=== PATIENT | female | born 1990 | race Caucasian/White ===

== ENCOUNTER 2019-04-27 10:38 | Emergency (ER) | payer MEDICAID ==
[~2019-04-27] VITALS: Ht 157.5 cm; Wt 55.8 kg
--- NOTE | 2019-04-27 10:38 | NUR ---
PATIENT TO BED 10 BY [facility] AT THIS TIME.
[2019-04-27 10:49] VITALS: BP 114/79
--- NOTE | 2019-04-27 11:01 | NUR ---
28 Y/O F BIBA FOR C/O LOWER ABDOMINAL PAIN 10/10 N/V X 1 DAY. PT STATES SHE WOKE UP VOMITTING THIS MORNING, NO DIARRHEA. PT STATES SHE AT [facility] AT 9:00 PM LAST NIGHT, NOTHING TO EAT OR DRINK THIS MORNING. PT VOMITTING AT BEDSIDE, GAVE EMESIS BAG. BOWEL SOUNDS ACTIVE ALL FOUR QUADRANTS, LOWER ABDOMEN TENDER TO TOUCH. PT POSITIONED FOR COMFORT. LUCI
[2019-04-27] MEDS ORDERED: ONDANSETRON 4 MG/2 ML VIAL IVP ONE (11:35)
[2019-04-27] MEDS ORDERED: NACL 0.9% 1,000 ML IV ONE (11:35)
[2019-04-27] MEDS ORDERED: MORPHINE SULFATE 4 MG/ML SYR IVP ONE (11:35)
--- NOTE | 2019-04-27 12:10 | NUR ---
IV PLACED, 22 G RT AC. LABS DRAWN AND 1000 ML NACL STARTED. ORDERED MEDICATIONS GIVEN. PT TOLERATED WELL.
--- NOTE | 2019-04-27 12:10 | NUR ---
INSPECTOR AND TESTER AT BEDSIDE PERFORMING ORDERED TEST.
[2019-04-27 12:20] LABS: BASOPHILS % (AUTO) 0.3 % (0.0-2.0); EOSINOPHILS % (AUTO) 0.6 % (0.0-4.0); HEMATOCRIT 35.6 % (36-48); HEMOGLOBIN 11.5 g/dL (12.0-16.0); LYMPHOCYTES # (AUTO) 1.1 K/uL (2.5-16.5); LYMPHOCYTES % (AUTO) 16.7 % (20.5-51.1); MEAN CORPUSCULAR HEMOGLOBIN 27 pg (27-31); MEAN CORPUSCULAR HGB CONC 32 g/dL (33-37); MEAN CORPUSCULAR VOLUME 84.3 fL (80-94); MONOCYTES # (AUTO) 0.3 K/uL (0.8-1.0); MONOCYTES % (AUTO) 4.2 % (1.7-9.3); NEUTROPHILS # (AUTO) 5.1 K/uL (1.8-7.7); NEUTROPHILS % (AUTO) 78.2 % (42.2-75.2); PLATELET COUNT (AUTO) 206 K/uL (140-450); RED BLOOD CELL COUNT(AUTO) 4.22 MIL/uL (4.20-5.40); RED CELL DISTRIBUTION WIDTH 16.7 % (11.6-13.7); WHITE BLOOD COUNT (AUTO) 6.6 K/uL (4.8-10.8)
--- NOTE | 2019-04-27 12:57 | NUR ---
PT NACL RUNNING W/O ADVERSE REACTION IN THROUGH RT AC 22 G. PT RESTING COMFORTABLY, STATE NO N/V OR PAIN.
[2019-04-27 13:19] LABS: ALBUMIN 3.7 g/dL (3.4-5.0); CARBON DIOXIDE 25.6 mmol/L (21-32); CREATININE 0.6 mg/dL (0.6-1.3); POTASSIUM 3.6 mmol/L (3.5-5.1); TOTAL BILIRUBIN 0.3 mg/dL (0.0-1.0)
[2019-04-27 13:28] LABS: APPEARANCE,URINE CLOUDY (CLEAR); BILIRUBIN,URINE NEGATIVE (NEGATIVE); BLOOD, URINE TRACE-L (NEGATIVE); COLOR,URINE YELLOW (YELLOW); LEUKOCYTE ESTERASE ,URINE NEGATIVE (NEGATIVE); NITRITE, URINE NEGATIVE (NEGATIVE); UGLUCOSE NEGATIVE (NEGATIVE)
--- NOTE | 2019-04-27 13:34 | NUR ---
PT RESTING COMFORTABLY, VSS, NACL RUNNIG W/O ADVERSE REACTION IN THE RT AC 22 G. PT STATE NO PAIN OR N/V
[2019-04-27 13:44] LABS: RBC,URINE NONE SEEN /HPF (0-5); WBC,URINE 0-5 /HPF (0-5)
[2019-04-27 14:29] VITALS: BP 114/72
--- NOTE | 2019-04-27 14:30 | NUR ---
Patient discharged with v/s stable. Written and verbal after care instructions given and explained. Patient alert, oriented and verbalized understanding of instructions. Ambulatory with steady gait. All questions addressed prior to discharge. ID band removed. Patient advised to follow up with PMD. Rx of NORCO ZOFRAN given. Patient educated on indication of medication including possible reaction and side effects. Opportunity to ask questions provided and answered.
== END 2019-04-27 14:30 | disposition home or self-care (01) ==
LOC: MED 10:38 → EDSEX 10:38 → MED 14:30
DX: A08.4 Viral intestinal infection, unspecified (principal); J45.909 Unspecified asthma, uncomplicated
CPT/HCPCS: 36415; 76705; 80053; 81001; 81025; 83690; 84702; 85025; 87086; 87804; 96361; 96374; 96375; 99284; J2270; J2405; Q0092; 81002